=== PATIENT | male | born 1995 | race Two or more races ===

== ENCOUNTER 2024-06-25 14:22 | Emergency (ER) | payer OTHER, SELFPAY ==
[2024-06-25 14:31] VITALS: BP 143/80; PULSE 77; RESP 18; TEMP 37.1; O2SAT 97
--- NOTE | 2024-06-25 14:38 | PD.EDRME ---
Rapid Medical Screening Exam RME Arrival date/time: 06/25/24 14:22 Chief Complaint: Wound/Laceration Time Seen by Provider: 06/25/24 14:37 Vital signs: Vital Signs Temperature 98.7 F 06/25/24 14:31 Pulse Rate 77 06/25/24 14:31 Respiratory Rate 18 06/25/24 14:31 Blood Pressure 143/80 H 06/25/24 14:31 Pulse Oximetry (%) 97 06/25/24 14:31 Oxygen Delivery Method Room Air 06/25/24 14:31 Vital signs reviewed by provider: Yes RME Narrative: 29-year-old left-handed male presents to the ED with a complaint of right middle finger crush injury secondary to an injury he sustained at work. He states he was moving a piece of 4X8 sheet of plywood [place], which is 1.25 thick, when it fell onto his right middle finger causing a crush injury/skin avulsion. His last tetanus was 06/2020.
--- NOTE | 2024-06-25 14:42 | XR_ITS ---
Examination: Hand, right 3 views Technique: Hand AP, oblique, lateral 3 views Date and time of exam: June 25, 2024 1502 hours INDICATIONS: Injury to the hand today with third digit pain. FINDINGS: Soft tissue deformity distal third digit No opaque foreign body No acute fracture No dislocation IMPRESSION: No acute fracture
--- NOTE | 2024-06-25 15:29 | EDNOTE_ITS ---
ED Wound/Laceration-RME/HPI General Chief Complaint: Wound/Laceration Stated Complaint: Work comp/Lacertion to right hand 3rd digit Time Seen by Provider: 06/25/24 14:37 Arrival date/time: 06/25/24 14:22 29-year-old left-handed male presents to the ED with a complaint of right middle finger crush injury secondary to an injury he sustained at work just prior to arrival. He states he was moving a piece of 4 x 8' [place] plywood which is 1 1/4 thick when it fell onto his right middle finger causing an avulsion. His last tetanus was 07/02. RME / HPI RME / HPI narrative: 29-year-old left-handed male presents to the ED with a complaint of right middle finger crush injury secondary to an injury he sustained at work. He states he was moving a piece of 4 x 8' [place] plywood which is 1 1/4 thick when it fell onto his right middle finger causing an avulsion. His last tetanus was 07/02. Onset (ago): minute(s) Extremity Location: Right: hand (Distal middle finger.) Place: work Patient tetanus UTD: Yes Context: crush injury Associated symptoms: pain Treatments prior to arrival: bandage Related Data Previous Rx's ?Medication ?Instructions ?Recorded ibuprofen 800 mg tablet 800 mg PO TID PRN pain #30 t abs 06/23/20 Allergies Allergy/AdvReac Type Severity Reaction Status Date / Time No Known Allergies Allergy Verified 06/25/24 14:24 Review of Systems Review of Systems Systems Reviewed: All systems reviewed, normal except as documented Past Medical History Social History SMOKING STATUS: Never smoker ED Exam Narrative Physical exam: Right middle finger crush injury with avulsion of skin to the distal phalanx. Nail intact. Sensory intact. No functional deficit. General General appearance: Present alert and in no apparent distress Head Head exam: Present atraumatic and normal inspection Eye Eye exam: Present normal appearance; Absent scleral icterus or conjunctival injection ENT ENT exam: Present normal exam Neck Neck exam: Present normal inspection Chest Chest inspection: Present normal inspection Respiratory Respiratory exam: Absent respiratory distress Cardiovascular Cardiovascular exam: Present regular rate and normal rhythm Abdominal Exam Abdominal exam: Absent distention Rectal Exam Rectal exam: Present deferred Extremities Exam Extremities exam: Present normal inspection Expanded Upper Extremity Exam Hand exam: Present full ROM and skin avulsion; Absent amputation or nail avulsion Vascular exam: Normal capillary refill Back Exam Back exam: Present full ROM Neurological Exam Neurological exam: Present alert and oriented X3 Psychiatric Psychiatric exam: Present normal affect and normal mood Skin Skin exam: Present warm, dry, normal color and other (Skin avulsion as noted above to right middle finger distal phalanx.) Course Course Course Narrative: 29-year-old left-handed male presents to the ED with a complaint of right middle finger crush injury secondary to an injury he sustained at work just prior to arrival. He states he was moving a piece of 4 x 8's [place] plywood which is one of the quadrant to stick when it fell onto his right middle finger causing an avulsion. His last tetanus was 07/02. Exam reveals: Right middle finger crush injury with avulsion of skin to the distal phalanx, volar surface. Nail intact. Sensory/motor intact. No functional deficit. Quality Measures none Orders Category Date Time Status XR hand comp RT min 3V Stat Exams 06/25/24 14:42 Completed HYDROcodone/APAP 10/325 [[place] 10/325] Med 06/25/24 14:42 Discontinued 1 tab PO X1 ONE Vital Signs Vital signs: Vital Signs Temperature 98.7 F 06/25/24 14:31 Pulse Rate 77 06/25/24 14:31 Respiratory Rate 18 06/25/24 14:31 Blood Pressure 143/80 H 06/25/24 14:31 Pulse Oximetry (%) 97 06/25/24 14:31 Oxygen Delivery Method Room Air 06/25/24 14:31 Procedures -ED Laceration Laceration 1: Site: hand (Right middle finger) Side (If applicable): right Size (cm): 1.5 Description: irregular (Skin avulsion) Depth: simple, single layer (Skin avulsion) Local Anesthetic: bupivacaine 0.5% Amount of anesthesia used (mL): 4 Skin layer closed with: other (None. Surgicel applied.) Number of sutures: 0 Technique: other (Unable to close) Wound / Laceration MDM Narrative MDM Narrative:: 29-year-old left-handed male presents to the ED with a complaint of right middle finger crush injury secondary to an injury he sustained at work just prior to arrival. He states he was moving a piece of 4 x 8's [place] plywood which is one of the quadrant to stick when it fell onto his right middle finger causing an avulsion. His last tetanus was 07/02. Exam reveals: Right middle finger crush injury with avulsion of skin to the distal phalanx, volar surface. Nail intact. Sensory/motor intact. No functional deficit. The patient was given hydrocodone 10 mg for his pain. X-ray of the right hand and fingers reveals no obvious tuft fracture. Anesthesia with digital block of 4 mL bupivacaine 0.5%. Wound aggressively cleaned and irrigated. Surgicel applied. Dressing applied. Patient tolerated procedure well. Work comp paperwork completed Patient data External records reviewed:: None Clinical information provided by:: patient and family Social determinants that could affect healthcare access:: none Patient has the following chronic illnesses:: None How is presenting disease/condition affected by chronic disease/condition?: no chronic disease Evaluation data The following diagnostics were reviewed and interpreted by me:: radiology exam(s) Lab and/or radiology exams considered but not ordered:: None Interpretation Summary: Right middle finger, no obvious tuft fracture. Medications / Prescriptions Medications or Prescriptions considered but not ordered:: Tetanus, however patient is up-to-date [facility] to [facility]. Medication administrations:: Medication Administration History Discontinued Medications Hydrocodone Bitart/Acetaminophen (Hydrocodone/Apap 10/325 Tab) 1 tab PO X1 ONE Stop: 06/25/24 14:43 Last Admin: 06/25/24 15:35 Dose: 1 tab Documented By: NITIN [place] 10 mg Consultations Consultation(s) initiated? (list below): No Diagnosis Wound Differential Diagnosis: laceration, abrasion and avulsion of skin Most likely diagnosis given after review of the tests above:: Right middle finger avulsion of skin. Admission Indicated Admission indicated?: not indicated Explain why admission is indicated or not indicated:: Patient is stable for discharge Admission Request Was there a request for admission?: No Disposition Plan Disposition Plan: Discharge Discharge Attestation Discharge Attestation: The patient and all family members were given an opportunity to ask questions and understood the discharge instructions. Discharge instructions specifically effects, indications for sooner follow up or return to the emergency department, and the expected course of current diagnosis. Patient condition: Stable Discharge Plan Plan Patient Disposition: HOME (Self Care) Discharge Disposition comment: Stable and improved Prescriptions/Referrals Prescriptions/Med Rec: No Action ibuprofen 800 mg tablet 800 mg PO TID PRN (Reason: pain) Qty: 30 0RF Problem List Clinical Impression: Avulsion of skin, Crushing injury of distal finger Patient/Caregiver Discharge Instructions Education Materials: ED Skin Avulsion, ED Crush Injury Hand Fing No Fx Ch Additional Instructions: Keep the wound clean and dry, do not expose it to any amount of moisture. Do not work with chemicals. Dressing should be changed in 48 hours. Follow-up with your Worker's Compensation clinic as instructed through your employer. Print Language: Malay Stand Alone Forms: Karon Award Info., Patient Portal Info Letter PA/NUMERICAL CONTROL MACHINE TOOL OPERATOR Supervising Physician PA/NUMERICAL CONTROL MACHINE TOOL OPERATOR Supervising Physician: Dr. JOSEPH
[2024-06-25] MEDS: HYDROcodone/APAP 10/325 TAB PO (15:35)
== END 2024-06-25 16:39 | disposition home or self-care (01) ==
LOC: SERX 16:22
PROVIDERS: Emergency Provider Emergency Medicine
DX: S61.212A Laceration without foreign body of right middle finger without damage to nail, initial encounter (principal); W23.0XXA Caught, crushed, jammed, or pinched between moving objects, initial encounter; Y99.0 Civilian activity done for income or pay
CPT/HCPCS: 12001; 73130; 99283; A9270